=== PATIENT | female | born 1960 | race Caucasian/White ===

== ENCOUNTER 2017-09-22 18:05 | Emergency (ER) | payer BC ==
[~2017-09-22] VITALS: Ht 162.6 cm; Wt 70.5 kg
[2017-09-22 18:07] VITALS: BP 119/69; TEMP 98.3
[2017-09-22] MEDS ORDERED: PRILOSEC 20MG20 MG PO (18:21)
[2017-09-22] MEDS ORDERED: SYNTHROID0.1 MG/TAB PO (18:21)
[2017-09-22] MEDS ORDERED: PROZAC 20MG20 MG PO (18:21)
[2017-09-22] MEDS ORDERED: ADVIL200 MG PO (18:22)
[2017-09-22] MEDS ORDERED: MACRODANTIN50 MG/CA1 PO (18:22)
[2017-09-22 19:05] VITALS: PULSE 73
== END 2017-09-22 19:07 | disposition home or self-care (01) ==
LOC: COL.ER 18:05
DX: S62.620A Displaced fracture of middle phalanx of right index finger, initial encounter for closed fracture (principal); E05.90 Thyrotoxicosis, unspecified without thyrotoxic crisis or storm; Z23 Encounter for immunization; Z98.890 Other specified postprocedural states; W01.198A Fall on same level from slipping, tripping and stumbling with subsequent striking against other object, initial encounter; Y92.410 Unspecified street and highway as the place of occurrence of the external cause

== ENCOUNTER → 2018-01-15 | Outpatient (CLI) | payer BC ==
[~2018-01-15] MED LIST: ADVIL200 MG PO; MACRODANTIN50 MG/CA1 PO; PRILOSEC 20MG20 MG PO; PROZAC 20MG20 MG PO; SYNTHROID0.1 MG/TAB PO
== END ==
LOC: MC.RAD 10:19
DX: Z12.31 Encounter for screening mammogram for malignant neoplasm of breast (principal)

== ENCOUNTER → 2020-10-04 | Outpatient (CLI) | payer BC | LOC: MC.RAD 14:43 | DX: Z12.31 Encounter for screening mammogram for malignant neoplasm of breast (principal) ==